=== PATIENT | female | born 1985 | race Caucasian/White ===

== ENCOUNTER 2019-12-20 12:59 | Emergency (ER) | payer OTHER ==
[~2019-12-20] VITALS: Ht 154.9 cm; Wt 86.2 kg
[2019-12-20 13:10] LABS: URINE BILIRUBIN NEGATIVE (Negative); URINE BLOOD NEGATIVE (Negative); URINE CLARITY CLEAR; URINE COLOR YELLOW; URINE GLUCOSE-RANDOM NEGATIVE (Negative); URINE KETONES NEGATIVE (Negative); URINE LEUKOCYTES-REFLEX 1+ (Negative); URINE NITRITE-REFLEX POSITIVE (Negative); URINE PROTEIN NEGATIVE (Negative); URINE SPECIFIC GRAVITY 1.025 (1.005-1.030); URINE UROBILINOGEN 0.2 E.U./dl (0.2-1.0)
[2019-12-20 13:17] LABS: BACTERIA-REFLEX >30 Many /HPF (None Seen); CASTS None Seen /LPF (None Seen); CRYSTALS None Seen /LPF (None Seen); MUCUS None Seen strn/LPF (None Seen); SQUAMOUS 4-10 Moderate /LPF (0-3); URINE RBC 0-2 Rare /HPF (0-2); URINE WBC-REFLEX 6-15 Few /HPF (0-5)
[2019-12-20] MEDS ORDERED: FLAGYL500 M1 PO (14:02)
[2019-12-20] MEDS ORDERED: KEFLEX500 M1 PO (14:02)
[2019-12-20 14:19] VITALS: BP 125/77
== END 2019-12-20 14:19 | disposition home or self-care (01) ==
LOC: M.ERS 12:59
PROVIDERS: Nurse Practitioner Family
DX: Z32.02 Encounter for pregnancy test, result negative (principal); N76.0 Acute vaginitis; N39.0 Urinary tract infection, site not specified; R10.2 Pelvic and perineal pain; Z88.0 Allergy status to penicillin